=== PATIENT | female | born 2000 | race African-American/Black ===

== ENCOUNTER 2018-02-03 09:08 | Emergency (ER) | payer MEDICAID ==
[~2018-02-03] VITALS: Ht 165.1 cm; Wt 59.0 kg
[2018-02-03 09:18] VITALS: BP 94/64
[2018-02-03 11:14] LABS: CLARITY URINE CLEAR (CLEAR); COLOR URINE YELLOW (YELLOW); KETONES URINE NEGATIVE (NEGATIVE); LEUKOCYTE ESTERASE URINE 1+ (NEGATIVE); NITRITE URINE NEGATIVE (NEGATIVE); OCCULT BLOOD URINE TRACE (NEGATIVE); PH URINE 6.5 (4.5-8.0); PROTEIN URINE NEGATIVE (NEGATIVE); UROBILINOGEN URINE 0.2 E.U./dL (0.2-1.0)
== END 2018-02-03 11:52 | disposition home or self-care (01) ==
LOC: ER 09:08
DX: N76.2 Acute vulvitis (principal); N30.00 Acute cystitis without hematuria; Z72.0 Tobacco use
CPT/HCPCS: 81003; 81025; 87086; 99284

== ENCOUNTER 2018-02-06 19:31 | Emergency (ER) | payer OTHER, MEDICAID ==
[~2018-02-06] VITALS: Ht 167.6 cm; Wt 64.0 kg
[2018-02-06] MEDS ORDERED: ONDANSETRON 4MG ODT PO ONE (23:15)
[2018-02-06] MEDS ORDERED: LIDOCAINE HCL 2% JELLY 5ML TOP ONE (23:15)
[2018-02-06] MEDS ORDERED: CEPHALEXIN 500MG CAPSULE PO ONE (23:30)
[2018-02-07 00:11] VITALS: BP 112/80
== END 2018-02-07 00:13 | disposition home or self-care (01) ==
LOC: ER 19:31
DX: N75.0 Cyst of Bartholin's gland (principal); F12.10 Cannabis abuse, uncomplicated
CPT/HCPCS: 56420; 99284; Q0162

== ENCOUNTER 2019-02-04 12:08 | Emergency (ER) | payer OTHER, MEDICAID ==
[~2019-02-04] VITALS: Ht 165.1 cm; Wt 59.0 kg
[2019-02-04 12:18] VITALS: BP 137/81
== END 2019-02-04 13:29 | disposition home or self-care (01) ==
LOC: ER 12:08
DX: J06.9 Acute upper respiratory infection, unspecified (principal); R03.0 Elevated blood-pressure reading, without diagnosis of hypertension; F12.11 Cannabis abuse, in remission
CPT/HCPCS: 96372; 99283

== ENCOUNTER 2019-04-06 20:29 | Emergency (ER) | payer OTHER, MEDICAID ==
[~2019-04-06] VITALS: Ht 165.1 cm; Wt 62.0 kg
[2019-04-07 01:25] VITALS: BP 115/79
== END 2019-04-07 01:35 | disposition home or self-care (01) ==
LOC: ER 23:11
DX: N76.0 Acute vaginitis (principal); J45.909 Unspecified asthma, uncomplicated; F12.10 Cannabis abuse, uncomplicated; F17.210 Nicotine dependence, cigarettes, uncomplicated; Z98.890 Other specified postprocedural states
CPT/HCPCS: 81025; 99283; 99406; Z7610

== ENCOUNTER 2022-03-11 12:18 | Emergency (ER) | payer OTHER, MEDICAID ==
[~2022-03-11] VITALS: Ht 167.6 cm; Wt 75.0 kg
[2022-03-11 12:31] VITALS: BP 135/90
[2022-03-11 14:51] LABS: BASOPHILS % 0.5 % (0.0-2.0); EOSINOPHILS % 0.3 % (0.0-5.0); HEMATOCRIT. 36.4 % (36.0-48.0); HEMOGLOBIN. 12.2 g/dL (12.0-16.0); LYMPHOCYTES % 27.5 % (20.0-50.0); MEAN CORPUSCULAR VOLUME 92.3 fL (81.0-99.0); MEAN PLATELET VOLUME 7.2 fl (7.4-10.4); MONOCYTES % 5.2 % (2.0-8.0); NEUTROPHILS % 66.5 % (40.0-76.0); PLATELET 252 x1000/uL (130-400); RED BLOOD CELL COUNT 3.94 mill/uL (4.2-5.4); RED CELL DISTRIBUTION WIDTH 13.9 % (11.6-14.6)
[2022-03-11 15:04] LABS: CHLORIDE 103 mEq/L (98-107)
[2022-03-11] MEDS ORDERED: ACETAMINOPHEN 325MG TABLET PO ONE (17:45)
[2022-03-11] MEDS ORDERED: CLIN-194 MT (18:03)
[2022-03-11] MEDS ORDERED: CEFI200T MT (18:03)
[2022-03-11] MEDS ORDERED: IBUP-2029 MT (18:04)
[2022-03-11] MEDS ORDERED: ACET-2708 MT (18:04)
[2022-03-11 18:10] LABS: CLARITY URINE CLEAR (CLEAR); COLOR URINE YELLOW (YELLOW); KETONES URINE TRACE (NEGATIVE); LEUKOCYTE ESTERASE URINE 1+ (NEGATIVE); NITRITE URINE NEGATIVE (NEGATIVE); OCCULT BLOOD URINE NEGATIVE (NEGATIVE); PH URINE 6.5 (4.5-8.0); PROTEIN URINE NEGATIVE (NEGATIVE); UROBILINOGEN URINE 0.2 E.U./dL (0.2-1.0)
[2022-03-18 13:07] LABS: BARBITURATE SCREEN Negative ug/mL (Cutoff:0.1); BENZODIAZEPINE SCREEN Negative ng/mL (Cutoff:20); OPIATES SCREEN Negative ng/mL (Cutoff:5); PHENCYCLIDINE SCREEN Negative ng/mL (Cutoff:8)
== END 2022-03-11 18:46 | disposition home or self-care (01) ==
LOC: ER 12:18
DX: N75.0 Cyst of Bartholin's gland (principal); J45.909 Unspecified asthma, uncomplicated; Z98.890 Other specified postprocedural states; F12.10 Cannabis abuse, uncomplicated
CPT/HCPCS: 36415; 80053; 80307; 81003; 85025; 87077; 87186; 87491; 99283; 99284

== ENCOUNTER 2023-10-19 17:32 | Emergency (ER) | payer MEDICAID ==
[~2023-10-19] VITALS: Ht 162.6 cm; Wt 60.0 kg
[~2023-10-19 17:32] MED LIST: ACET-2708 MT; CEFI200T MT; CLIN-194 MT; IBUP-2029 MT
[2023-10-19 17:42] VITALS: BP 120/81; PULSE 89; RESP 18; TEMP 97.7; O2SAT 100
[2023-10-19] MEDS ORDERED: IBUP-2029 MT (20:09)
[2023-10-19] MEDS ORDERED: TOPUD MT (20:09)
== END 2023-10-19 20:29 | disposition home or self-care (01) ==
LOC: ER 17:32
DX: N94.3 Premenstrual tension syndrome (principal); J45.909 Unspecified asthma, uncomplicated; F12.10 Cannabis abuse, uncomplicated; Z79.899 Other long term (current) drug therapy; Z98.890 Other specified postprocedural states
CPT/HCPCS: 99281